=== PATIENT | female | born 1995 | race Caucasian/White ===

== ENCOUNTER 2020-08-26 12:38 | Observation (INO) | payer MEDICAID ==
[~2020-08-26] VITALS: Ht 167.6 cm; Wt 78.0 kg
[2020-08-28] MEDS ORDERED: PREN1TAB78 PO (05:10)
[2020-08-29] MEDS ORDERED: IBUP-2030 PO (06:43)
== END 2020-08-26 14:08 | disposition home or self-care (01) ==
LOC: 8 EST LDRP 12:38
PROVIDERS: ADMIT Obstetrics & Gynecology; ATTEND Obstetrics & Gynecology
DX: O26.853 Spotting complicating pregnancy, third trimester (principal); Z3A.39 39 weeks gestation of pregnancy
CPT/HCPCS: 59025; 76805; 76818; G0378; 99281